=== PATIENT | male | born 2000 | race Caucasian/White ===

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

== ENCOUNTER 2019-01-16 00:13 | Emergency (ER) | payer MEDICAID ==
[~2019-01-16] VITALS: Ht 182.9 cm; Wt 81.6 kg
[~2019-01-16 00:13] MED LIST changes: +ZOFRAN4 M3 ORAL
--- NOTE | 2019-01-16 00:57 | Emergency Room Report ---
History of Present Illness General Chief Complaint: Nausea, Vomiting, and Diarrhea Present Illness HPI Patient is a 18-year-old male presented after increased nausea vomiting and diarrhea. Patient had recent illness after eating a [employer] sandwich. He reports having multiple episodes of nonbloody emesis.Prior history of seizures but does not currently take any medications. He reports having some mild left lower abdominal pain. He had associated watery diarrhea. Allergies: Coded Allergies: NO KNOWN ALLERGIES (Unverified Allergy, Unknown, 09/07/15) Patient History Past Medical History: see triage record Reviewed Nursing Documentation: PMH: Agreed; PSxH: Agreed Nursing Documentation-PMH Hx Gastrointestinal Problems: Yes - kidney stone Hx Seizures: Yes - oct Physical Exam Vital Signs Date Time Temp Pulse Resp B/P (MAP) Pulse Ox O2 Delivery O2 Flow Rate FiO2 01/16/19 00:24 99.3 115 16 134/70 97 Room Air Medical Decision Making Diagnostic Impression: Primary Impression: Nausea, vomiting, and diarrhea ER Course Patient presented for abdominal pain. Differential diagnoses included ischemic bowel, appendicitis, perforated viscus, abdominal aortic aneurysm, inferior myocardial infarction, viral gastroenteritis among others. Last Vital Signs Date Time Temp Pulse Resp B/P (MAP) Pulse Ox O2 Delivery O2 Flow Rate FiO2 01/16/19 00:24 99.3 115 16 134/70 97 Room Air Mulugeta Hickey MD Jan 16, 2019 00:57
--- NOTE | 2019-01-16 01:07 | NUR ---
ED Nurse Note: pt walked in c/o nausea vomiting and diarrhea started 1700 today. per pt he ate a sandwhich earlier and has been nauseous since
[2019-01-16 01:08] VITALS: BP 134/70
--- NOTE | 2019-01-16 01:10 | NUR ---
ED Nurse Note: BLOOD SENT TO LAB
[2019-01-16 01:35] LABS: HEMATOCRIT 41.9 % (42.0-52.0); HEMOGLOBIN 14.5 G/DL (14.2-18.0); MEAN CORPUSCULAR VOLUME 86 FL (80-99); PLATELET COUNT 180 K/UL (150-450); RED BLOOD COUNT 4.88 M/UL (4.70-6.10); RED CELL DISTRIBUTION WIDTH 11.2 % (11.6-14.8); WHITE BLOOD COUNT 11.7 K/UL (4.8-10.8)
[2019-01-16 01:55] LABS: ANION GAP 8 mmol/L (5-15); BLOOD UREA NITROGEN 12 mg/dL (7-18); CALCIUM 9.7 MG/DL (8.5-10.1); CARBON DIOXIDE 30 MMOL/L (21-32); CHLORIDE 104 MMOL/L (98-107); CREATININE 0.8 MG/DL (0.55-1.30); POTASSIUM 4.1 MMOL/L (3.5-5.1); SODIUM 142 MMOL/L (136-145)
[2019-01-16 01:59] LABS: ALANINE AMINOTRANSFERASE 49 U/L (12-78); ALBUMIN 4.5 G/DL (3.4-5.0); ALBUMIN/GLOBULIN RATIO 1.3 (1.0-2.7); ALKALINE PHOSPHATASE 62 U/L (46-116); ASPARTATE AMINO TRANSFERASE 14 U/L (15-37); BILIRUBIN,TOTAL 0.5 MG/DL (0.2-1.0)
[2019-01-16] MEDS ORDERED: ZOFRAN4 MG ORAL (02:28)
[2019-01-16 02:41] VITALS: BP 134/70
--- NOTE | 2019-01-16 02:41 | NUR ---
ER DISCHARGE NOTE: Patient is cleared to be discharged per ERMD, pt is aox4, on room air, with stable vital signs. pt was given dc and prescription instructions, pt was able to verbalize understanding, pt id band and iv site removed without complications. pt is able to ambulate with steady gait. pt took all belongings.
== END 2019-01-16 02:41 | disposition home or self-care (01) ==
LOC: EMR 00:46
DX: R11.2 Nausea with vomiting, unspecified (principal); R19.7 Diarrhea, unspecified
CPT/HCPCS: 36415; 80053; 84443; 85025; 96361; 96374; 99284; J2405

== ENCOUNTER 2019-02-02 13:22 | Emergency (ER) | payer MEDICAID ==
[~2019-02-02] VITALS: Ht 182.9 cm; Wt 81.6 kg
[~2019-02-02 13:22] MED LIST changes: +ZOFRAN4 MG ORAL
[2019-02-02] MEDS ORDERED: Benzonatate 100mg Perles ORAL ONE (14:00)
--- NOTE | 2019-02-02 14:00 | Emergency Room Report ---
History of Present Illness General Chief Complaint: Upper Respiratory Illness Source: Patient Present Illness HPI 18-year-old male patient presents the ER complaining of cough and congestion for the past 3 days. Denies fever. Denies recent travel outside the country. Denies history of heart disease or asthma. Reports episode of vomiting yesterday, states is been able to tolerate p.o. fluids and food since that time. Reports up-to-date on vaccinations. Denies abdominal pain. Denies diarrhea. Denies hemoptysis. Denies other aggravating or relieving factors. States his been taking Robitussin [id number] with mild relief of symptoms. Allergies: Coded Allergies: NO KNOWN ALLERGIES (Unverified Allergy, Unknown, 09/07/15) Patient History Past Medical History: see triage record Reviewed Nursing Documentation: PMH: Agreed; PSxH: Agreed Nursing Documentation-PMH Past Medical History: No History, Except For Hx Gastrointestinal Problems: Yes - kidney stone Hx Seizures: Yes Review of Systems All Other Systems: negative except mentioned in HPI Physical Exam Vital Signs Date Time Temp Pulse Resp B/P (MAP) Pulse Ox O2 Delivery O2 Flow Rate FiO2 02/02/19 13:41 98.1 95 14 129/74 100 Room Air Sp02 EP Interpretation: reviewed, normal General Appearance: well appearing, no apparent distress, alert, GCS 15, non- toxic Head: normocephalic, atraumatic Eyes: bilateral eye normal inspection, bilateral eye PERRL ENT: hearing grossly normal, normal pharynx, no angioedema, normal voice, TMs + canals normal, uvula midline, moist mucus membranes, nasal congestion Neck: full range of motion, no meningismus, no bony tend Respiratory: lungs clear, normal breath sounds, no rhonchi, no respiratory distress, no accessory muscle use, no wheezing, speaking full sentences Cardiovascular #1: regular rate, rhythm, no edema Gastrointestinal: non tender, soft, no mass, non-distended, no guarding, no rebound Genitourinary: no CVA tenderness Musculoskeletal: back normal, digits/nails normal, gait/station normal, normal range of motion, non-tender Neurologic: alert, oriented x3, responsive, motor strength/tone normal, sensory intact Psychiatric: mood/affect normal Skin: no rash Lymphatic: no adenopathy Medical Decision Making PA Attestation Dr. Gerardo is my supervising Physician whom patient management has been discussed with. Diagnostic Impression: Primary Impression: Upper respiratory infection ER Course Pt presents to ED c/o cough and congestion. DDX considered but are not limited to influenza, viral URI, pneumonia, strep throat, rhinitis, sinusitis, otitis media, otitis externa, gastritis. VITAL SIGNS are WNL, patient is afebrile. ER COURSE: Provide patient with Tessalon Perles for cough. Lungs clear to auscultation, no wheezes, rhonci or rales. patient afebrile. Patient speaking full sentences pulse ox over 95, no hypoxia, does not require breathing treatment. Chest x-ray negative for acute disease per the preliminary reading. Low suspicion for pneumonia, does not require antibiotics. Physical exam benign, no abdominal TTP, negative Burrell sign, negative Rovsing, negative obturator, low suspicion for appendicitis or cholecystitis, does not require labs or imaging at this time. No fever, no blood in stool, no recent travel or hospitalizations, does not require abx treatment at this time. No signs of dehydration, moist mucus membranes, cap refill <2seconds, normal skin turgor. Patient reports being able to tolerate p.o. fluids and food. no tonsillar exudates, no pharyngeal erythema, history of cough, no fever, no stridor, uvula midline, low suspicion for peritonsillar abscess. Likely viral etiology of symptoms. Symptomatic treatment. drink plenty of fluids. Salt water gargles for sore throat. Followup with PCP for further treatment and/or referral as needed. ER precautions given. DISCHARGE: At this time pt is stable for d/c to home. Patient is resting comfortably, in no acute distress, nontoxic appearing. Patient to take medications as instructed Will provide with patient care instructions and any necessary prescriptions. Care plan and follow-up instructions provided. Patient instructed to follow-up with primary care provider in 3 - 5 days. Patient questions asked and answered. Patient reports understanding and agreement to treatment plan. ER precautions given. Patient instructed to return to ER immediately for any new or worsening of symptoms including but not limited to increasing SOB, persistent fever, intractable vomiting. - Please note that this Emergency Department Report was dictated using [employer]urn[employer] cooler technology software, occasionally this can lead to erroneous entry secondary to interpretation by the dictation equipment. Chest X-Ray Diagnostic Results Chest X-Ray Diagnostic Results : Chest X-Ray Ordered: Yes # of Views/Limited/Complete: 1 View Indication: Chest Pain EP Interpretation: Yes PA Xray: Interpretation reviewed, by supervising MD, and agrees with findings. Interpretation: no consolidation, no effusion, no pneumothorax, no acute cardiopulmonary disease Impression: No acute disease ANAND Hensonibdominique Text Gurdeep Pablo PA-C Last Vital Signs Date Time Temp Pulse Resp B/P (MAP) Pulse Ox O2 Delivery O2 Flow Rate FiO2 02/02/19 13:41 98.1 95 14 129/74 100 Room Air Status: improved Disposition: HOME, SELF-CARE Condition: Stable Scripts Benzonatate* (TESSALON PERLE*) 100 Mg Capsule 100 MG ORAL THREE TIMES A DAY, #30 PERLE Prov: Yordan Pablo 02/02/19 Ibuprofen* (MOTRIN*) 600 Mg Tablet 600 MG ORAL Q8H PRN for For Pain, #30 TAB 0 Refills Prov: Yordan Pablo 02/02/19 Fluticasone Propionate* (FLUTICASONE PROPIONATE*) 16 Gm [place].susp 1 SPRAY NASAL TWICE A DAY, #16 GM Prov: Yordan Pablo 02/02/19 Loratadine/Pseudoephedrine (CLARITIN-D 12 HOUR TABLET) 1 Each Tab.er.12h 1 TAB ORAL EVERY 12 HOURS, #24 TAB Prov: Yordan Pablo 02/02/19 Patient Instructions: Nausea and Vomiting, Adult, [id number], Upper Respiratory Infection, Adult Additional Instructions: Followup with primary care provider in 3 -5 days. Salt water gargles for sore throat. Take Tylenol for pain and fever symptoms Drink plenty of water. Take medications as directed. Patient questions asked and answered. ER precautions given, patient instructed to return to ER immediately for any new or worsening of symptoms including but not limited to intractable vomiting, difficulty breathing, inability to eat. Yordan Pablo Feb 02, 2019 14:00
[2019-02-02 14:06] VITALS: BP 129/74
--- NOTE | 2019-02-02 14:10 | NUR ---
ED Nurse Note: pt walked in to ED due to flu like sx for 1 week. painful cough without fever or chills. respirations even and non-labored noted. breath sounds clear. AAO x4. skin intact. will wait for the x-ray.
[2019-02-02] MEDS ORDERED: FLUTICASONE PRO16 G1 NASAL (14:20)
[2019-02-02] MEDS ORDERED: IBUPROFEN600 MG ORAL (14:20)
[2019-02-02] MEDS ORDERED: TESSALON PERLE100 MG ORAL (14:20)
[2019-02-02] MEDS ORDERED: CLARITIN-D 121 EAC1 ORAL (14:20)
[2019-02-02 14:33] VITALS: BP 129/74
--- NOTE | 2019-02-02 14:34 | NUR ---
ER DISCHARGE NOTE: Patient is cleared to be discharged per ERMD, pt is aox4, on room air, with stable vital signs. pt was given dc and prescription instructions, pt was able to verbalize understanding, pt id band removed. pt is able to ambulate with steady gait. pt took all belongings.
--- NOTE | 2019-02-02 14:41 | Diagnostic Imaging Report ---
Indication: Cough Technique: One view of the chest Comparison: none Findings: Lungs and pleural spaces are clear. Heart size is normal Impression: No acute process
== END 2019-02-02 14:33 | disposition home or self-care (01) ==
LOC: EMR 13:48
DX: J06.9 Acute upper respiratory infection, unspecified (principal); Z87.442 Personal history of urinary calculi
CPT/HCPCS: 71045; 99283

== ENCOUNTER 2019-03-20 16:33 | Emergency (ER) | payer MEDICAID, OTHER ==
[~2019-03-20] VITALS: Ht 185.4 cm; Wt 84.4 kg
[~2019-03-20 16:33] MED LIST changes: +CLARITIN-D 121 EAC1 ORAL; +FLUTICASONE PRO16 G1 NASAL; +TESSALON PERLE100 MG ORAL
--- NOTE | 2019-03-20 16:59 | Emergency Room Report ---
History of Present Illness General Chief Complaint: Earache Source: Patient Present Illness HPI Patient has earwax problems. He tried using Debrox and now he can't hear anything. He also has pain when he pulls on his ear on the right-hand side. He denies any fevers or chills. He has had problems with cerumen impaction in the past. No major medical problems. No chest pain, abdominal pain, nausea, vomiting, diarrhea or dysuria. Allergies: Coded Allergies: NO KNOWN ALLERGIES (Unverified Allergy, Unknown, 09/07/15) Patient History Past Medical History: see triage record Social History: Denies: smoking, alcohol use, drug use Social History Narrative student Reviewed Nursing Documentation: PMH: Agreed; PSxH: Agreed Nursing Documentation-PMH Hx Gastrointestinal Problems: No - kidney stone Hx Seizures: Yes Review of Systems All Other Systems: negative except mentioned in HPI Physical Exam Vital Signs Date Time Temp Pulse Resp B/P (MAP) Pulse Ox O2 Delivery O2 Flow Rate FiO2 03/20/19 16:41 98.1 101 18 132/70 99 Room Air Sp02 EP Interpretation: reviewed, normal General Appearance: well appearing, no apparent distress, GCS 15 Head: normocephalic, atraumatic Eyes: bilateral eye normal inspection, bilateral eye PERRL ENT: normal pharynx, uvula midline, moist mucus membranes, other - Bilateral cerumen impa Neck: full range of motion, supple Respiratory: lungs clear, no respiratory distress, speaking full sentences Cardiovascular #1: regular rate, rhythm Cardiovascular #2: 2+ radial (L) Gastrointestinal: normal inspection Musculoskeletal: no calf tenderness Neurologic: alert, normal gait, grossly normal Psychiatric: mood/affect normal Skin: no rash Medical Decision Making Diagnostic Impression: Primary Impression: Bilateral impacted cerumen Additional Impression: External otitis of right ear Qualified Codes: H60.391 - Other infective otitis externa, right ear ER Course Patient presents with bilateral cerumen impaction. Will use Colace and irrigated the ears. Cerumen was removed from the right side. The patient had vertigo on the left. He was improved however after irrigation and stated his hearing was greatly improved. Repeat exam revealed normal tympanic membranes. The canal on the right-hand side was minimally erythematous. Antibiotics are prescribed. Discussed means for prevention of future impaction and also suggested follow-up with his doctors and possible ENT. Patient stable for outpatient observation and treatment. Last Vital Signs Date Time Temp Pulse Resp B/P (MAP) Pulse Ox O2 Delivery O2 Flow Rate FiO2 03/20/19 18:50 98.2 70 22 127/75 99 Room Air Status: improved Disposition: HOME, SELF-CARE Condition: Improved Scripts Neomycin/Polymyxin B Sulf/Hc* (CORTISPORIN EAR SOLUTION*) 10 Ml Solution 3 DROP RIGHT EAR TID, #10 ML 0 Refills Prov: Arpit Baig MD 03/20/19 Arpit Baig MD Mar 20, 2019 16:59
[2019-03-20] MEDS ORDERED: Docusate 100mg/10ml Liq OTIC ONE (17:00)
--- NOTE | 2019-03-20 17:11 | NUR ---
ED Nurse Note: Pt came into the ER w/ complaints of earache due to ear wax build up on bilateral ears. Pt is A + o x4. Ambulatory. Skin warm to touch. Pt is rating the pain a 9/10. Non radiating.
[2019-03-20 17:12] VITALS: BP 130/77
[2019-03-20] MEDS ORDERED: CORTISPORIN EAR10 ML RIGHT EAR (18:47)
[2019-03-20 18:50] VITALS: BP 127/75
--- NOTE | 2019-03-20 18:51 | NUR ---
ER DISCHARGE NOTE: Patient is cleared to be discharged per ERMD, pt is aox4, on room air, with stable vital signs. pt was given dc and prescription instructions, pt was able to verbalize understanding, pt id band removed without complications. pt is able to ambulate with steady gait. pt took all belongings.
== END 2019-03-20 18:51 | disposition home or self-care (01) ==
LOC: EMR 17:15
DX: H61.23 Impacted cerumen, bilateral (principal); H60.391 Other infective otitis externa, right ear; G40.909 Epilepsy, unspecified, not intractable, without status epilepticus; R42 Dizziness and giddiness
CPT/HCPCS: 69209; 99282; Z7502

== ENCOUNTER 2019-05-03 20:43 | Emergency (ER) | payer OTHER ==
[~2019-05-03] VITALS: Ht 185.4 cm; Wt 86.2 kg
[~2019-05-03 20:43] MED LIST changes: +CORTISPORIN EAR10 ML RIGHT EAR
[2019-05-03 20:52] VITALS: BP 134/79
[2019-05-03] MEDS: Pseudoephedrine 30mg tab ORAL ONE (21:26)
[2019-05-03] MEDS: Clarithromycin 500mg tab ORAL ONE (21:27)
--- NOTE | 2019-05-03 21:48 | Emergency Room Report ---
History of Present Illness General Chief Complaint: Flu Like Symptoms Source: Patient Present Illness HPI Patient presents with several days of upper respiratory symptoms. He mainly is complaining about sore throat and right ear pain at this time. He has been using antibiotic drops in his ear but they have not helped. He feels nasal congestion also. He has a slight cough. He felt feverish but did not document this. Denies any joint pain. There is no nausea, vomiting, diarrhea, dysuria. He denies any chest pain at this time. The pain in his ear and throat is rated 10/10, aching and burning. Is worse when he is swallowing. Allergies: Coded Allergies: NO KNOWN ALLERGIES (Unverified Allergy, Unknown, 09/07/15) Patient History Past Medical History: see triage record Social History: Denies: smoking, alcohol use, drug use Social History Narrative Student Reviewed Nursing Documentation: PMH: Agreed; PSxH: Agreed Nursing Documentation-PM Past Medical History: No History, Except For Hx Gastrointestinal Problems: No - kidney stone Hx Seizures: Yes - doesn't take med. Review of Systems All Other Systems: negative except mentioned in HPI Physical Exam Vital Signs Date Time Temp Pulse Resp B/P (MAP) Pulse Ox O2 Delivery O2 Flow Rate FiO2 05/03/19 20:49 98.2 85 18 134/79 (97) 99 Room Air Sp02 EP Interpretation: reviewed, normal General Appearance: well appearing, no apparent distress Head: normocephalic, atraumatic Eyes: bilateral eye normal inspection, bilateral eye PERRL, bilateral eye EOMI ENT: no angioedema, normal voice, pharyngeal erythema, other - Right tympanic membrane with bullous myringitis left with cerumen Neck: full range of motion Respiratory: lungs clear, normal breath sounds, no respiratory distress, speaking full sentences Cardiovascular #1: regular rate, rhythm Cardiovascular #2: 2+ radial (R) Gastrointestinal: normal inspection Genitourinary: no CVA tenderness Musculoskeletal: gait/station normal, normal range of motion, no calf tenderness Neurologic: alert, oriented x3, grossly normal Psychiatric: mood/affect normal Skin: no rash, other - Acne Medical Decision Making Diagnostic Impression: Primary Impression: Bullous myringitis of right ear ER Course Patient presents with right ear pain and sore throat. Exam is consistent with bullous myringitis. Antibiotic's are therefore indicated. Also he will be treated with Sudafed and Tylenol. Discussed treatment plan with patient. Patient stable for outpatient observation and treatment. Last Vital Signs Date Time Temp Pulse Resp B/P (MAP) Pulse Ox O2 Delivery O2 Flow Rate FiO2 05/03/19 22:51 98.3 82 18 142/75 99 Room Air Status: improved Disposition: HOME, SELF-CARE Condition: Improved Scripts Ibuprofen* (MOTRIN*) 600 Mg Tablet 600 MG ORAL Q6H PRN for For Pain, #20 TAB 0 Refills Prov: Arpit Baig MD 05/03/19 Chlorpheniramine Maleate (CHLOR-TRIMETON) 4 Mg Tablet 4 MG PO Q6HR PRN for congestion, #10 TAB Prov: Arpit Baig MD 05/03/19 Guaifenesin/Codeine Phos* (ROBITUSSIN AC*) 118 Ml Liquid 5 ML ORAL Q6H PRN for For Cough, #60 ML 0 Refills Prov: Arpit Baig MD 05/03/19 Clarithromycin* (CLARITHROMYCIN*) 500 Mg Tablet 500 MG PO Q12HR, #14 TAB Prov: Arpit Baig MD 05/03/19 Arpit Baig MD May 03, 2019 21:48
[2019-05-03] MEDS ORDERED: IBUPROFEN600 MG ORAL (21:58)
[2019-05-03] MEDS ORDERED: CHLOR-TRIMETON4 MG PO (21:58)
[2019-05-03] MEDS ORDERED: CLARITHROMYCIN500 MG PO (21:58)
[2019-05-03] MEDS ORDERED: GUAIFENESIN-CO118 M1 ORAL (21:58)
[2019-05-03 22:51] VITALS: BP 142/75
== END 2019-05-03 22:50 | disposition home or self-care (01) ==
LOC: EMR 21:05
DX: H73.011 Bullous myringitis, right ear (principal); Z86.69 Personal history of other diseases of the nervous system and sense organs
CPT/HCPCS: 99282

== ENCOUNTER 2019-06-25 16:57 | Emergency (ER) | payer OTHER ==
[~2019-06-25] VITALS: Ht 185.4 cm; Wt 81.6 kg
[~2019-06-25 16:57] MED LIST changes: +CHLOR-TRIMETON4 MG PO; +CLARITHROMYCIN500 MG PO; +GUAIFENESIN-CO118 M1 ORAL
--- NOTE | 2019-06-25 17:10 | NUR ---
ED Nurse Note: Patient walked into ED brought in by his aunt c/o pain on the left wrist, injured while he was playing soccer yesterday. patient reports history of depression and anxiety, PMD prescribed xanax as needed. his aunt is concerned about patient's depression and he was talking about "" since yesterday. When patient was asked "do you feel like hurting yourself?" patient reported that he does not feel like hurting himself, he does not have any plain, he feels like he needs help for his depression. Notified DR. Espinoza about this.
[2019-06-25] MEDS ORDERED: ALPRAZOLAM1 M2 ORAL (17:12)
[2019-06-25] MEDS ORDERED: LOSARTAN POTASS50 MG ORAL (17:12)
[2019-06-25] MEDS ORDERED: METOPROLOL SUCC25 MG ORAL (17:12)
--- NOTE | 2019-06-25 17:50 | Emergency Room Report ---
History of Present Illness General Chief Complaint: Upper Extremity Injury/suicidal ideation Source: Patient, Family Member Present Illness HPI Disclaimer: Please note that this report is being documented using DRAGON technology. This can lead to erroneous entry secondary to incorrect interpretation by the dictating instrument. HPI: 19-year-old male with a history of anxiety presents for evaluation of left wrist pain but also for depression. First, the patient states that he injured his left wrist while playing [place] during a soccer match yesterday. He had his wrist bent backwards and has since has been having pain over the dorsum but denies any paresthesias, limitation to range of motion, significant swelling. He has been applying topical anesthetic cream and keeping it wrapped in an Pancho bandage. No history of prior injury. Second though, he states that he has been having depressive symptoms over the past few weeks that are acutely worsening. He notes difficulty sleeping, poor appetite, decreased lynette in life. He notes that he has significant disagreements with his father and does not like living with him. He mentioned to me that he is thought about hanging himself but that currently has no plans to do so. He was accompanied to the emergency department today by his aunt and his sister. Both of them endorse that he has been actively suicidal over the past few days and even made homicidal threats stating that he could fill the house with gas and kill everyone. His sister told me that he mentioned that the world would be "better off without him" and that he has been violent, throwing furniture but not physically harming anyone. They both note that he gets in "fits of rage" where it is difficult to calm him down. He was given Xanax by his PMD but he states it is not helping. He currently denies suicidality though family is concerned over his safety and their safety. There are no weapons in the house per family. He is otherwise in his usual state of health and denies fever, chills, chest pain, shortness of breath, abdominal pain, vomiting, diarrhea, rash. PMH: Anxiety, one-time seizure PSH: Denies Allergies: Denies Social Hx: Denies drug, alcohol or tobacco use Allergies: Coded Allergies: NO KNOWN ALLERGIES (Unverified Allergy, Unknown, 09/07/15) Nursing Documentation-PMH Hx Gastrointestinal Problems: No - kidney stone History Of Psychiatric Problem: Yes - depression Hx Seizures: Yes - doesn't take med. Review of Systems All Other Systems: negative except mentioned in HPI Physical Exam Vital Signs Date Time Temp Pulse Resp B/P (MAP) Pulse Ox O2 Delivery O2 Flow Rate FiO2 06/25/19 17:07 98.1 112 16 153/87 (109) 100 Room Air General: Awake and alert, no acute distress HEENT: NC/AT. EOMI. Neck: Supple, trachea midline Chest Wall: No tenderness, no deformity Cardiovascular: RRR. S1 and S2 normal. No murmur appreciated Resp: Normal work of breathing. No cough, wheezing or crackles appreciated Abdomen: Abdomen is soft, nondistended. Nontender Skin: Intact. No abrasions, laceration or rash over the exposed skin MSK: Normal tone and bulk. Moving all extremities. No obvious deformity. Mild tenderness over the dorsum of the wrist without edema, erythema, ecchymosis or limitation to range of motion on flexion, extension, ulnar deviation and radial deviation. He is able to flex and extend all digits. He has intact sensation to light touch over the radial and ulnar surfaces of all digits. Neuro: Awake and alert. Oriented x3. Mentating appropriately. Good insight into his feelings and medical conditions. Appropriate historian. Cooperative with exam. Currently denying suicidality. Medical Decision Making Diagnostic Impression: Primary Impression: Left wrist sprain ER Course 19-year-old male history of anxiety presents for evaluation of worsening depressive symptoms, suicidal thoughts and family concern over suicidal and homicidal gestures and a addition to left wrist pain. We will obtain an x-ray of the wrist to rule out occult fracture though I believe it is likely a sprain. Otherwise, patient will require psychiatric evaluation. He is amenable to staying in the emergency department for psychiatry and is willing to have his labs drawn. Will perform full metabolic and tox work-up and discuss with psychiatry. He is currently calm and cooperative. Laboratory Tests Test 06/25/19 17:53 White Blood Count 10.2 K/UL (4.8-10.8) Red Blood Count 5.05 M/UL (4.70-6.10) Hemoglobin 14.6 G/DL (14.2-18.0) Hematocrit 43.0 % (42.0-52.0) Mean Corpuscular Volume 85 FL (80-99) Mean Corpuscular Hemoglobin 28.9 PG (27.0-31.0) Mean Corpuscular Hemoglobin Concent 34.0 G/DL (32.0-36.0) Red Cell Distribution Width 11.1 % (11.6-14.8) L Platelet Count 217 K/UL (150-450) Mean Platelet Volume 6.6 FL (6.5-10.1) Neutrophils (%) (Auto) 58.0 % (45.0-75.0) Lymphocytes (%) (Auto) 32.9 % (20.0-45.0) Monocytes (%) (Auto) 6.9 % (1.0-10.0) Eosinophils (%) (Auto) 0.9 % (0.0-3.0) Basophils (%) (Auto) 1.4 % (0.0-2.0) Sodium Level 134 MMOL/L (136-145) L Potassium Level 3.2 MMOL/L (3.5-5.1) L Chloride Level 98 MMOL/L (98-107) Carbon Dioxide Level 26 MMOL/L (21-32) Anion Gap 10 mmol/L (5-15) Blood Urea Nitrogen 7 mg/dL (7-18) Creatinine 0.9 MG/DL (0.55-1.30) Estimat Glomerular Filtration Rate > 60 mL/min (>60) Glucose Level 93 MG/DL (74-106) Calcium Level 9.5 MG/DL (8.5-10.1) Total Bilirubin 0.4 MG/DL (0.2-1.0) Aspartate Amino Transf (AST/SGOT) 31 U/L (15-37) Alanine Aminotransferase (ALT/SGPT) 42 U/L (12-78) Alkaline Phosphatase 59 U/L (46-116) Total Protein 7.9 G/DL (6.4-8.2) Albumin 4.6 G/DL (3.4-5.0) Globulin 3.3 g/dL Albumin/Globulin Ratio 1.4 (1.0-2.7) Salicylates Level 1.2 ug/mL (2.8-20) L Urine Opiates Screen Negative (NEGATIVE) Acetaminophen Level < 2 MCG/ML (10-30) L Urine Barbiturates Screen Negative (NEGATIVE) Phencyclidine (PCP) Screen Negative (NEGATIVE) Urine Amphetamines Screen Negative (NEGATIVE) Urine Benzodiazepines Screen Negative (NEGATIVE) Urine Cocaine Screen Negative (NEGATIVE) Urine Marijuana (THC) Screen Negative (NEGATIVE) Serum Alcohol < 3 mg/dL Other X-Ray Diagnostic Results Other X-Ray Diagnostic Results : X-Ray ordered: Left wrist # of Views/Limited Vs Complete: 3 View Indication: Pain EP Interpretation: Yes Interpretation: no dislocation, no soft tissue swelling, no fractures Impression: No acute disease Electronically Signed by: Electronically signed by Dr. Rodo Espinoza Reevaluation Time: 21:59 Last Vital Signs Date Time Temp Pulse Resp B/P (MAP) Pulse Ox O2 Delivery O2 Flow Rate FiO2 06/25/19 17:07 98.1 112 16 153/87 (109) 100 Room Air Status: unchanged Reevaluation Impression No evidence of fracture on x-ray. Patient's labs returned largely within normal limits. He is awaiting psychiatric evaluation in the emergency department. Stable and cooperative. Be signed out to Dr. Perera pending psychiatric evaluation. Signed Out To: Rodo Horowitz MD Jun 25, 2019 17:50
--- NOTE | 2019-06-25 18:30 | NUR ---
ED Nurse Note: blood and urine sample sent to lab
[2019-06-25 18:47] LABS: ANION GAP 10 mmol/L (5-15); BLOOD UREA NITROGEN 7 mg/dL (7-18); CALCIUM 9.5 MG/DL (8.5-10.1); CARBON DIOXIDE 26 MMOL/L (21-32); CHLORIDE 98 MMOL/L (98-107); CREATININE 0.9 MG/DL (0.55-1.30); POTASSIUM 3.2 MMOL/L (3.5-5.1); SODIUM 134 MMOL/L (136-145)
[2019-06-25 18:52] LABS: ALANINE AMINOTRANSFERASE 42 U/L (12-78); ALBUMIN 4.6 G/DL (3.4-5.0); ALBUMIN/GLOBULIN RATIO 1.4 (1.0-2.7); ALKALINE PHOSPHATASE 59 U/L (46-116); ASPARTATE AMINO TRANSFERASE 31 U/L (15-37); BASOPHILS % (AUTO) 1.4 % (0.0-2.0); BILIRUBIN,TOTAL 0.4 MG/DL (0.2-1.0); EOSINOPHILS % (AUTO) 0.9 % (0.0-3.0); HEMOGLOBIN 14.6 G/DL (14.2-18.0); LYMPHOCYTES % (AUTO) 32.9 % (20.0-45.0); MEAN CORPUSCULAR VOLUME 85 FL (80-99); MONOCYTES % (AUTO) 6.9 % (1.0-10.0); PLATELET COUNT 217 K/UL (150-450); RED BLOOD COUNT 5.05 M/UL (4.70-6.10); RED CELL DISTRIBUTION WIDTH 11.1 % (11.6-14.8); WHITE BLOOD COUNT 10.2 K/UL (4.8-10.8)
--- NOTE | 2019-06-25 19:14 | NUR ---
HAND-OFF: Report given to Jackeline FONTANA.
--- NOTE | 2019-06-25 19:14 | NUR ---
ED Nurse Note: patient in green gown. belongings (clothings) in the locker #2.
--- NOTE | 2019-06-25 19:30 | NUR ---
ED Nurse Note: Recieved report from am nurse to resume care, pt in bed talking on cell phone and having conversation with 4 family members at bedside, family does not want me to ask him any questions or agitate him, pt is eating [employer] food, no distress noted, pt waiting for psychiatric evaluation, will continue to closely monitor.
[2019-06-25 22:00] VITALS: BP 141/79
--- NOTE | 2019-06-25 22:00 | NUR ---
ED Nurse Note: Pt continues to rest quietly in room, conversating with family members, v/s taken, pt denies pain or any discomforts, MD spoke with family about all test results and revised plan of care letting family aware of possible wait time, family angry stating it taking too long, many attempts made to console, food given to family and water, also pillows and blankets for comfort, will continue to monitor while waiting for PET team evaluation.
[2019-06-25] MEDS ORDERED: Mylanta II UD 30ml ORAL ONE (23:30)
[2019-06-26] VITALS (8 sets, daily range): BP systolic 112–130; BP diastolic 68–80
--- NOTE | 2019-06-26 01:00 | NUR ---
ED Nurse Note: pt in room awake and alert, ambulating to bathroom, pt other family members have arrived, pt mother and grandfather, pt stating he is not suicidal and wants to go home, aunt states otherwise, pt is calm and cooperative, denies pain or any discomforts, pt given sandwich and juice, pt remains on suicidal precautions while waiting for PET team evaluation. no changes or increased distress noted, will continue to monitor.
--- NOTE | 2019-06-26 05:00 | NUR ---
ED Nurse Note: Pt continues to rest quietly in room with family, no attempts or changes made, pt is calm, and cooperative, pt mother and grandfather now in room, pt denies pain, continuing to remain on suicidal precautions with close observation, waiting for PET team eval for psychiatric, nad noted at this time, will continue to closely monitor.
--- NOTE | 2019-06-26 06:08 | NUR ---
ED Nurse Note: Received report from MARIZOL Viveros. Patient at no distress at this time, patient stated that he was unable to sleep last night. complains of no pain
--- NOTE | 2019-06-26 07:16 | NUR ---
HAND-OFF: Report given to MARIZOL Fraser.
--- NOTE | 2019-06-26 07:17 | NUR ---
ED Nurse Note: Received patient in bed. patient is alert awake x4 resting in bed. mother/father at bedside. ordered diet tray for the patient.
--- NOTE | 2019-06-26 08:10 | NUR ---
ED Nurse Note: breakfast tray provided.
--- NOTE | 2019-06-26 10:20 | NUR ---
ED Nurse Note: patient's room is clean and linens change per request. patient's vitals stable except HR 105, patient reports having anxiety, but declines to take xanax, patient reports he was not able to sleep last night. family at bedside. patient is eating well, voiding well using unrinal. patient's urine output is good.
--- NOTE | 2019-06-26 10:39 | Diagnostic Imaging Report ---
Indication: Left wrist pain Findings: 3 views of the left wrist were obtained. No acute fractures, malalignment, erosions or periostitis are identified. Soft tissues are unremarkable. Impression: No acute findings.
--- NOTE | 2019-06-26 12:02 | NUR ---
ED Nurse Note: PMRT ON BEDSIDE MAKING ASSESSMENT TO THE PT AND TALKING TO FAMILY.
--- NOTE | 2019-06-26 15:22 | NUR ---
ED Nurse Note: report was given to Missy FONTANA at [address], endorsed all plan of care to Missy FONTANA
--- NOTE | 2019-06-26 16:09 | NUR ---
ED Nurse Note: Dr. Patel by the beside assessing patient.
[2019-06-26] MEDS ORDERED: LORazepam Inj 2mg/ml 1ml ONE (16:30)
[2019-06-26] MEDS ORDERED: LORazepam Inj 2mg/ml 1ml IM ONE (16:30)
--- NOTE | 2019-06-26 16:56 | NUR ---
ED Nurse Note: delay of transferring pt. to [facility] due to anxiety. pt.'s HR is ranging from 120-140. [facility] will not take unless HR goes down. Pt. was given 2mg ativan IM
--- NOTE | 2019-06-26 20:00 | NUR ---
ED Nurse Note: notified Dr. luna regarding patient's oral temp 99.8F. received order of 650mg tylenol PO
[2019-06-26] MEDS ORDERED: LORazepam Inj 2mg/ml 1ml IV ONE (20:15)
--- NOTE | 2019-06-26 20:56 | NUR ---
ED Nurse Note: Notified Dr. Patel regarding ortho's HR 107-115 after the 2nd bolus and given medication as ordered.
[2019-06-26] MEDS ORDERED: Labetalol 5mg/ml 20ml vial IV ONE (22:15)
--- NOTE | 2019-06-26 22:57 | NUR ---
ER DISCHARGE NOTE: Patient is being transferred to [facility] via [facility] with his phone. all other belongigns taken by his parents. Informed his parents the address for [facility]. patient's IV site discontinued without complication. patient's vitals stable. courtesy call was given to [facility] by [place]
== END 2019-06-26 22:57 ==
LOC: EMR 17:32
DX: S63.502A Unspecified sprain of left wrist, initial encounter (principal); X50.1XXA Overexertion from prolonged static or awkward postures, initial encounter; Y93.66 Activity, soccer; Y92.9 Unspecified place or not applicable; F41.9 Anxiety disorder, unspecified; F32.9 Major depressive disorder, single episode, unspecified
CPT/HCPCS: 36415; 73110; 80053; 80307; 85025; 99284; G0480; 80329; J8499